=== PATIENT | male | born 1980 ===

== ENCOUNTER 2025-01-21 06:50 | Day surgery (SDC) | payer OTHER ==
[2025-01-21] VITALS (14 sets, daily range): BP systolic 105–144; BP diastolic 71–104
[~2025-01-21] VITALS: Ht 167.6 cm; Wt 79.6 kg
--- NOTE | 2025-01-21 06:38 | NUR ---
01/21/25 0638 Gila Harmon CONFIRMED AND REVIEWED H&P, MEDCICATIONS, ALLERGIES, MEDICAL HISTORY, RESPIRATORY HISTORY, VITAL SIGNS, 3-LEAD EKG, CONSENTS, AND PHYSICIAN ORDERS. PATIENT CONFIRMS NPO STATUS AND AGREES WITH SCHEDULED PROCEDURE. MONITOR INTACT WITH CONTINUOUS PULSE OXIMETRY, CAPNOGRAPHY, 3-LEAD EKG, INTERMITTENT BP. SUPPLEMENTAL O2 TO BE TITRATED THROUGHOUT PROCEDURE TO MAINTAIN O2 SATURATION ABOVE 90%. PATIENT DETERMINED TO BE ASA APPROPRIATE FOR PROPOFOL SEDATION PRIOR TO START OF PROCEDURE BY DR. YOUNG
--- NOTE | 2025-01-21 07:20 | NUR ---
Ambulatory in Day Surgery History, Chart, Medications and Allergies reviewed before start of procedure. Pre-Op teaching done. Pt verbalizes understanding. Patient States Post-Procedure ride home has been arranged.
[2025-01-21] MEDS ORDERED: Midazolam HCl 1MG / ML 2ML Vial ONE (07:41)
--- NOTE | 2025-01-21 08:39 | NUR ---
Discharge instructions reviewed with patient. Patient verbalizes understanding. Copy given to patient to take home. Patient States Post-Procedure ride home has been arranged. Discharged via wheelchair to private car for ride home.
== END 2025-01-21 08:40 | disposition home or self-care (01) ==
LOC: ORSCMMR 06:50 → ORD 07:30 → ORSCMMR 08:40
PROVIDERS: Internal Medicine Gastroenterology
PROC: 0DJD8ZZ Inspection of Lower Intestinal Tract, Via Natural or Artificial Opening Endoscopic (ICD-10-PCS; principal; 2025-01-21 07:30)
DX: Z12.11 Encounter for screening for malignant neoplasm of colon (principal); Z90.49 Acquired absence of other specified parts of digestive tract; K64.4 Residual hemorrhoidal skin tags
CPT/HCPCS: J2250; J2704; J7120